=== PATIENT | male | born 1970 | race Caucasian/White ===

== ENCOUNTER 2021-03-22 15:05 | Emergency (ER) | payer BC, SELFPAY ==
[2021-03-22 15:14] VITALS: BP 176/98; PULSE 103; RESP 16; TEMP 36.8; O2SAT 99
--- NOTE | 2021-03-22 15:19 | ED.GENADULT ---
HPI - General Adult General Chief complaint: Unspecified Stated complaint: Hot flashes Time Seen by Provider: 03/22/21 15:23 Source: patient Mode of arrival: ambulatory Limitations: no limitations History of Present Illness HPI narrative: 50-year-old male patient presents to the [facility] with complaints of fatigue and tingliness to bilateral upper extremities and little bit of lightheadedness that started this morning. Patient states he was sitting at the computer when it started this morning. Patient states he thought it might be one of his anxiety attacks in which she tried to get up and walk around and have his take him for drive to calm down however did not decrease his symptoms. Patient states he just feels very hot all over. Patient recently returned to work last week after being off for COVID for 2 weeks. Patient states the only symptoms he had with COVID was fatigue and a cough but did not think that his symptoms were very bad. Patient does take blood pressure medication and cannot remember if he took it today or not. Patient supposed to be taking lisinopril daily. states that he is not very good about taking it daily. Denies any changes in life denies any recent dust or stressful situations in his life at this time. Denies any chest pain at this time. Patient states he is unsure if he is short of breath. Related Data Allergies Allergy/AdvReac Type Severity Reaction Status Date / Time No Known Allergies Allergy Verified 05/11/19 08:36 Review of Systems Review of Systems: CONSTITUTIONAL: Denies fever, chills, or sweats. Positive fatigue EYES: Denies visual changes, redness, or discharge. ENT: Denies rhinorrhea, congestion, sore throat, or otalgia. CARDIOVASCULAR: Denies chest pain, palpitations, or edema. RESPIRATORY: Denies cough or dyspnea. GASTROINTESTINAL: Denies abdominal pain, nausea, vomiting, or diarrhea. GENITOURINARY: Denies dysuria or hematuria. SKIN: Denies rash or itching. MUSCULOSKELETAL: Denies back pain, joint pain, or myalgia. NEUROLOGIC: Denies headache, numbness, or weakness. Positive lightheadedness tingling to bilateral upper extremities PSYCHIATRIC: Positive anxiety, denies depression. [facility] Past Medical History Medical History Hypertension Insomnia Pneumothorax (~2010) Rib fractures (~2010) Surgical History Surgical History History of appendectomy (~04/2016) [place] teeth extracted Family History Family History Father Cerebrovascular accident Mother Family history of type 2 diabetes mellitus Mother Family history of type 2 diabetes mellitus Social History Social History Smoking status: Former smoker Second hand tobacco smoke exposure: No Smoking end date: 03/01/04 Alcohol intake: current Alcohol use details: consumes 3 beers or glasses of liquor monthly Substance use: never Substance use type: does not use Gender identity (if verbalized by the patient): Male Comments At the time of my signature I agree with nursing past medical history, surgical, social, and family history. There is no relevant family history pertinent to the presenting complaint. Exam Narrative: GENERAL: Well-appearing, well-nourished, and in no acute distress. HEAD: Normocephalic, atraumatic. EYES: PERRLA and EOMI. ENT: Nares clear, no rhinorrhea or epistaxis. Mucous membranes moist. Bilateral TMs are clear with no erythema or foreign bodies in the canal NECK: Supple. No lymphadenopathy CHEST: Clear to auscultation. No respiratory distress. Patient able to talk in clear complete sentences. HEART: Regular rate and rhythm. No murmur heard. Normal peripheral pulses. ABDOMEN: Soft, nontender, nondistended, normal active bowel sounds. EXTREMITIES: Normal range of mo
[2021-03-22 15:36] LABS: Glucose Point of Care 87 mg/dl (65-105)
[2021-03-22 15:39] VITALS: BP 144/93; PULSE 83; RESP 16; O2SAT 99
--- NOTE | 2021-03-22 15:39 | ECG_ITS ---
Measurements Intervals [place] Rate: 80 P: 43 NC: 121 QRS: -34 QRSD: 90 T: 61 QT: 375 QTc: 433 Interpretive Statements SINUS RHYTHM LEFT AXIS DEVIATION INCOMPLETE RIGHT BUNDLE BRANCH BLOCK DELAYED PRECORDIAL R/S TRANSITION BORDERLINE ECG Electronically Signed On 03-22-2021 20:10:43 [employer] by Devan Calloway D.O.
[2021-03-22] MEDS: ASPIRIN 81 MG CHEWABLE TABLET 324 MG PO (15:48)
== END 2021-03-22 15:54 | disposition short-term general hospital (02) ==
PROVIDERS: Emergency Provider Nurse Practitioner Family
DX: I10 Essential (primary) hypertension (principal); Z87.891 Personal history of nicotine dependence; Z86.16 Personal history of COVID-19
CPT/HCPCS: 82948; 93005; 99213; A9270; G0463

== ENCOUNTER 2021-03-22 16:07 | Emergency (ER) | payer BC, SELFPAY ==
[2021-03-22] VITALS (21 sets, daily range): BP systolic 136–158; BP diastolic 80–110; PULSE 76–95; RESP 11–22; TEMP 36.4; O2SAT 94–100
--- NOTE | ~2021-03-22 | XR_ITS ---
EXAMINATION: XR chest 1V portable INDICATION: Shortness of breath TECHNIQUE: Portable AP chest at 1636 hours COMPARISON: None available FINDINGS: There are minimal airspace opacities of the lung bases. No pleural effusion or pneumothorax is identified. The cardiomediastinal silhouette is normal. Old left-sided rib fractures are noted. IMPRESSION: 1. Bibasilar airspace opacities, consistent with atelectasis versus pneumonia. Reviewed, dictated and finalized at location F. CAL [facility] FLOAT
--- NOTE | 2021-03-22 16:31 | ECG_ITS ---
Measurements Intervals [place] Rate: 84 P: 48 TX: 123 QRS: -36 QRSD: 87 T: 32 QT: 368 QTc: 437 Interpretive Statements SINUS RHYTHM LEFT AXIS DEVIATION BASELINE ARTIFACT- II, III, AVF BORDERLINE ECG Electronically Signed On 03-23-2021 8:04:44 [employer] by Devan Calloway D.O.
--- NOTE | 2021-03-22 16:32 | ED.GENADULT ---
HPI - General Adult General Chief complaint: Unspecified Stated complaint: body heats up Time Seen by Provider: 03/22/21 16:24 Source: RN notes reviewed History of Present Illness HPI narrative: Patient presents emergency department from [facility] for feeling of his body heating up. Patient states that today he has had numerous episodes where he feels like his body is heating up having increased pressure and then will release states these episodes last approximately 1 to 2 minutes and resolve 45 episodes today with his last episode he is leaving the urgent care patient states he has no fevers or chills no chest pain no shortness of breath no abdominal pain nausea vomiting or other symptoms states he does have a history of panic attacks but these have felt slightly different to him he had gone to the urgent care and recommended come to the ER for further evaluation Related Data Allergies Allergy/AdvReac Type Severity Reaction Status Date / Time No Known Allergies Allergy Verified 03/22/21 16:21 Review of Systems Review of Systems: Gen.: Denies fevers or chills ENT: Denies congestion Respiratory: Denies shortness of breath or cough CV: Denies chest pain or palpitations GI: Denies abdominal pain nausea, emesis Musculoskeletal: Denies back pain or muscle pain Neuro: Denies numbness, tingling, weakness or focal weakness Skin: Denies rash Except as documented, all other systems reviewed and negative PMFSH Past Medical History Medical History Hypertension Insomnia Pneumothorax (~2010) Rib fractures (~2010) Surgical History Surgical History History of appendectomy (~04/2016) [place] teeth extracted Family History Family History Father Cerebrovascular accident Mother Family history of type 2 diabetes mellitus Mother Family history of type 2 diabetes mellitus Social History Social History Smoking status: Former smoker Second hand tobacco smoke exposure: No Smoking end date: 03/01/04 Alcohol intake: current Alcohol use details: consumes 3 beers or glasses of liquor monthly Substance use: never Substance use type: does not use Gender identity (if verbalized by the patient): Male Exam Narrative: APPEARANCE: No acute distress, nontoxic, resting in bed EYES: EOMI HEENT: Normocephalic, atraumatic, OMM RESPIRATORY: No respiratory distress Clear to auscultation bilaterally with no rhonchi wheezing or rales. CARDIOVASCULAR: Regular rate and rhythm without murmurs rubs or gallops. ABDOMINAL: Soft, nontender, nondistended, no rebound or guarding MUSCULOSKELETAl: Moves all extremities. No clubbing, cyanosis or edema. NEURO: Awake and alert. Following commands, speech normal, no focal deficits SKIN:: Warm, dry. No rashes lesions or abrasions PSYCHIATRIC: Normal affect/mood, Course Course Emergency Course: Reviewed the patient's chest x-ray he has no shortness of breath patient did have COVID at the beginning of March Patient states all symptoms have resolved following Ativan. States he has never been on a benzodiazepine at home Discussed with patient results of workup and diagnosis. Discussed need for follow-up with primary care, proper use of medication, and reasons to return to the emergency department. Patient understands and agrees to current treatment plan Vital Signs Vital signs: Vital Signs Temperature 97.6 F 03/22/21 16:17 Pulse Rate 81 03/22/21 16:17 Respiratory Rate 17 03/22/21 16:17 Blood Pressure 136/80 03/22/21 16:17 Pulse Oximetry 100 03/22/21 16:17 Temperature 97.6 F 03/22/21 16:17 Pulse Rate 81 03/22/21 16:17 Respiratory Rate 17 03/22/21 16:17 Blood Pressure 136/80 03/22/21 16:17 Pulse Oximetry 100 03/22/21 16:17 Medical Decision Ma
[2021-03-22 17:01] LABS: Basophils Absolute Auto 0.1 K/mm3 (0.0-0.1); Basophils Percent Auto 0.9 % (0.2-1.2); Eosinophils Absolute Auto 0.2 K/mm3 (0-0.3); Eosinophils Percent Auto 1.7 % (0-4.4); Hematocrit 45.3 % (42.0-52.0); Hemoglobin 15.7 g/dL (14.0-18.0); Immature Granulocyte Absolute 0.05 K/mm3 (0.00-0.031); Immature Granulocyte Percent A 0.5 % (0-0.5); Lymphocytes Absolute Auto 2.59 K/mm3 (0.9-3.2); Lymphocytes Percent Auto 25.3 % (18.3-44.2); Mean Corpuscular HGB Conc 34.7 g/dl (32-36); Mean Corpuscular Hemoglobin 29.5 pg (26-34); Mean Platelet Volume 9.1 fl (7.4-10.4); Monocytes Absolute Auto 0.8 K/mm3 (0.1-0.6); Monocytes Percent Auto 7.7 % (2.6-8.5); Neutrophils Absolute Auto 6.6 K/mm3 (1.3-6.7); Neutrophils Percent Auto 63.9 % (45.5-73.1); Platelet Count Result 287 k/mm3 (150-375); Red Blood Count 5.33 M/mm3 (4.6-6.20); Red Cell Distribution Width 12.6 % (11.5-14.5); White Blood Count 10.2 K/mm3 (4.5-10.0)
[2021-03-22] MEDS: LORazepam (*CRX) 0.5 MG TABLET PO (17:05)
[2021-03-22 17:11] LABS: INR 1.1; Partial Thromboplastin Time 27.5 SECONDS (22.3-36.8); Prothrombin Time 14.2 Seconds (11.1-14.7)
[2021-03-22 17:16] LABS: Alanine Aminotransferase 37 U/L (4-50); Albumin Level 4.4 g/dL (3.5-5.1); Alkaline Phosphatase 102 U/L (38-126); Anion Gap 11 mmol/L (8-16); Aspartate Amino Transferase 42 U/L (17-59); Bilirubin,Total 0.4 mg/dL (0.2-1.3); Blood Urea Nitrogen 13 mg/dL (9-20); Calcium 8.6 mg/dL (8.4-10.2); Carbon Dioxide 25 mmol/L (22-30); Chloride 101 mmol/L (98-107); Estimated CRCL calculation 117 ml/min; Estimated Glomerular Filt Rate > 60; Glucose 96 mg/dL (65-110); Lipase 132 U/L (23-300); Potassium 3.6 mmol/L (3.4-5.0); Sodium 137 mmol/L (137-145)
[2021-03-22 17:27] LABS: Troponin I < 0.012 ng/mL (0.000-0.034)
== END 2021-03-22 20:30 | disposition home or self-care (01) ==
PROVIDERS: Emergency Provider Emergency Medicine
DX: F41.9 Anxiety disorder, unspecified (principal); I10 Essential (primary) hypertension; Z86.16 Personal history of COVID-19; Z87.891 Personal history of nicotine dependence; R94.31 Abnormal electrocardiogram [ECG] [EKG]; R91.8 Other nonspecific abnormal finding of lung field
CPT/HCPCS: 36415; 71045; 80053; 83690; 84484; 85025; 85610; 85730; 93005; 99284; A9270

== ENCOUNTER → 2022-01-06 10:33 | Outpatient (CLI) | payer BC, SELFPAY ==
--- NOTE | ~2022-01-06 | XR_ITS ---
XR chest 2V DATE: 01/06/2022 10:49 INDICATION: History of abnormal x-ray TECHNIQUE: 2 views COMPARISON: 03/22/2021 portable AP chest FINDINGS: Multiple old healed posterolateral left rib fractures. Degenerative spurring of the thoraci c spine. Normal heart size. No hilar or mediastinal enlargement. No pulmonary infiltrate or consolidation, ple ural effusion or pulmonary vascular congestion or pneumothorax. IMPRESSION: No active cardiopulmonary disease Reviewed, dictated and finalized at location A. T PEELER
== END ==
PROVIDERS: PCP Emergency Medicine; Visit Provider Emergency Medicine
DX: R93.89 Abnormal findings on diagnostic imaging of other specified body structures (principal)
CPT/HCPCS: 71046